=== PATIENT | male | born 1940 | race Caucasian/White ===

== ENCOUNTER 2018-04-12 02:39 | Inpatient (IN) ==
--- NOTE | 2018-04-12 03:18 | Emergency Department Note ---
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 Qualifiers: Laterality: unspecified laterality Qualified Code(s): C64.9 - Malignant neoplasm of unspecified kidney, except renal pelvis Disposition: Admitted As Inpatient Condition: Fair Referrals: Nela De Souza CNP [Primary Care Provider] - Forms: ED Satisfaction Letter Time of Disposition: 04:51 Nausea/Vomiting/Diarrhea HPI - General Chief complaint: ED Nausea/Vomiting/Diarrhea Stated complaint: n/v, Weakness Time Seen by Provider: 04/12/18 02:43 Source: patient, EMS Mode of arrival: ambulatory Limitations: no limitations, age Nursing Notes Reviewed: Yes Vital Signs Reviewed: Yes - History of Present Illness HPI Narrative: 78-year-old male presented to the emergency department with nausea and vomiting. Patient does have history of renal cell carcinoma he has a kidney removed. He does take chemotherapy 2 weeks on 2 weeks off this been doing this for about 8 years. He never is nauseous when he takes it. He says it is a pill he does not go in for chemotherapy treatment. Yesterday patient had 2 episodes of emesis that was green non-bloody though. said since then he has really felt well he has not had a fever. This morning he got up said that he needed go to the bathroom when he sat down and said he was not feeling well need delay on the ground he then laid on the ground then got up and vomited. After that why said he needed to come to the emergency department. On his way patient said he actually has no complaints at this time does not feel nauseous or like using a vomited at this time. Says he feels way they are that when he first arrived. He had no diarrhea. He has had no fevers. Does not complain of any abdominal pain or any chest pain. Patient otherwise has no complaints including no headaches, blurry vision, neck pain, back pain, fever, chills, nausea, vomiting, chest pain, shortness of breath, abdominal pain, change in balance, pain with urination, pain or tingling or down the arms or legs or any generalized weakness. - Related Data Home Medications Medication Instructions Recorded Confirmed Levothyroxine Sodium [Synthroid] 125 mcg PO DAILY 12/08/14 02/15/18 Metoprolol XL (24 HR) Succ [Toprol 50 mg PO DAILY 12/08/14 02/15/18 XL] Niacin [Niaspan] 500 mg PO DAILY 12/08/14 02/15/18 RX: Aspirin 81 mg PO DAILY 12/08/14 02/15/18 Tamsulosin [Flomax] 0.4 mg PO DAILY 12/08/14 02/15/18 Previous Rx's Medication Instructions Recorded RX: Sunitinib Malate [Sutent] 50 mg PO AD #28 capsule 11/26/17 Allergies Allergy/AdvReac Type Severity Reaction Status Date / Time No Known Allergies Allergy Verified 02/15/18 15:56 All systems ED: reviewed and negative except as stated. Review of Systems: As Per [facility] Past Medical History - Past Medical History Attestation: Yes The following information was validated with the patient. Source: patient Medical history: Reports: cancer, hypertension, other Surgical history: Reports: other Psychiatric history: Reports: no psych history - Social History Smoking Status: Former smoker Smokeless Tobacco Status: No Alcohol use: Reports: none Drug use: Reports: none Physical Exam - General Limitations: age General appearance: alert, in no apparent distress - Head Head exam: atraumatic, normocephalic, normal inspection - Eye Eye exam: Present: normal appearance, PERRL, EOMI - ENT ENT exam: normal exam, normal oropharynx, mucous membranes moist - Neck Neck exam: Present: normal inspection, full ROM, trachea midline - Chest Chest inspection: Present: normal inspection, symmetric chest wall rise - Respiratory Respiratory exam: Present: normal lung sounds bilaterally - Cardiovascular Cardiovascular exam: Present: regular rate, normal rhythm, normal heart sounds - Abdominal Exam Abdominal exam: Present: soft, Non-Tender, normal bowel sounds. Absent: tenderness, distention, guarding, rebound, rigidity - Extremities Exam Extremities exam: Present: normal inspection, full ROM. Absent: tenderness, pedal edema - Expanded Lower Extremity Exam Neurovascular/Tendon exam: Present: normal capillary refill. Absent: pulse deficit, motor deficit, sensory deficit, tendon deficit - Back Exam Back exam: Present: normal inspection, full ROM. Absent: tenderness, CVA tenderness (R), CVA tenderness (L) - Neurological Exam Neurological exam: Present: alert, oriented X3 - Skin Skin exam: Present: warm, dry, intact, normal color Course Course Narrative: We will get basic labs including CBC, BMP, troponin as well as urinalysis and magnesium. We will give patient 1 L IV fluids and monitoring. Patient did not have any abdominal pains no further imaging is needed at this time. He is not feeling nauseous at this time. Disposition is pending results Vital Signs Temperature 97.7 F 04/12/18 02:43 Pulse Rate 114 04/12/18 02:43 Respiratory Rate 20 04/12/18 02:43 Blood Pressure 118/98 04/12/18 02:43 O2 Sat by Pulse Oximetry 100 04/12/18 02:43 Temperature 97.7 F 04/12/18 02:43 Pulse Rate 115 04/12/18 04:59 Respiratory Rate 24 04/12/18 04:59 Blood Pressure 113/87 04/12/18 04:59 O2 Sat by Pulse Oximetry 99 04/12/18 04:59 Oxygen Delivery Oxygen Delivery Room Air Nausea/Vomiting/Diarrhea - MDM Narrative Medical decision making narrative: 78-year-old male presented to the emergency department recently nausea vomiting has had a nausea or vomiting since he has been here. Patient's labs came back with many abnormalities including elevated potassium decreased bicarbonate w orsening creatinine and be when also elevated troponin. Patient is declining any chest pain at this time. We did attempt to get a straight catheter urine there was no urine to be made so we think patient is most likely dehydration. We will give patient 2 L of IV fluids these are currently running at this time. We will repeat a BMP after the fluids are given. Patient did not have any acute EKG changes with the elevated troponin of 6.8. At this time I think the potassium and bicarbonate will autoregulate once patient gets IV fluids is most likely secondary to dehydration. Patient is having no symptoms at this time. Troponin most likely secondary to demand ischemia due to the hypovolemia. I decided that the patient does need to be admitted due to his alleged slight abnormalities as well as only having one kidney and this acute kidney injury that he is having. I spoke with the hospitalist Dr. Lebron who agreed to admit the patient to their service. They are not requesting that we start Kayexalate as well as calcium gluconate at this time and agreed with our plan of IV fluids and rechecking a BMP. Patient is still stable at this time still having no complaints. Patient is going to be admitted to the hospitalist service. - Medical Records Medical records reviewed: Yes I reviewed the patient's medical records. - Lab Data Lab results reviewed: Yes I reviewed the patient's lab results. Result diagrams: 04/12/18 02:46 04/12/18 02:46 Lab Results 04/12/18 04/12/18 04/12/18 Range/Units 02:46 02:46 03:28 WBC 6.8 (4.3-11.1) K/mcL RBC 4.27 (4.19-5.50) M/mcL Hgb 14.4 (12.9-16.9) g/dL Hct 45.3 (37.5-50.1) % MCV 106.1 H (83.0-100.0) fL MCH 33.7 H (28.0-33.3) pg MCHC 31.8 (31.6-35.5) g/dL RDW 15.3 H (11.5-14.5) % Plt Count 141 (140-400) K/mcL MPV 9.9 (9.4-12.4) fL Immature Gran % 0.4 (0-4) % Seg Neutrophils % 87.3 % Lymphocytes % 7.5 % Monocytes % 4.7 % Eosinophils % 0.0 % Basophils % 0.1 % Neutrophils # 5.9 (1.6-8.9) K/mcL Lymphocytes # 0.5 L (0.6-4.6) K/mcL Monocytes # 0.3 (0.0-1.3) K/mcL Eosinophils # 0.0 (0.0-0.6) K/mcL Basophils # 0.0 (0.0-0.2) K/mcL Sodium 134 L (136-145) mEq/L Potassium 6.8 H* (3.5-5.1) mEq/L Chloride 105 (98-107) mEq/L Carbon Dioxide 10 L* (23-29) mEq/L BUN 66 H (8-23) mg/dL Creatinine 3.67 H (0.70-1.30) mg/dL Est GFR ( Amer) 19 L (> 60) Est GFR (Non-Af Amer) 16 L (> 60) BUN/Creatinine Ratio 18 (6-26) Glucose 125 H (70-105) mg/dL Calculated Osmolality 299 (280-300) Lactic Acid 3.7 H (0.5-2.2) mmol/L Calcium 9.7 (8.6-10.3) mg/dL Magnesium 1.9 (1.6-2.6) mg/dL Total Bilirubin 1.2 H (0.3-1.0) mg/dL AST 28 (13-39) Units/L ALT 19 (7-52) Units/L Alkaline Phosphatase 105 H (34-104) Units/L Troponin I 0.06 H* (< 0.04) ng/mL Serum Total Protein 7.4 (6.4-8.9) g/dL Albumin 4.2 (3.5-5.7) g/dL Globulin 3.2 (2.4-3.5) g/dL Albumin/Globulin Ratio 1.3 (1.1-2.2) Lipase 28 (11-82) Units/L - EKG Data EKG attestation: Yes I reviewed and interpreted this EKG. EKG results narrative: EKG done at 0 258 review myself and the attending shows sinus tachycardia at a rate of 116, MO 176, QRS 92, QTC 432. No acute ST changes no acute T-wave changes no other signs of ischemia. No hypertrophy, heart strain, heart block. No WPW/Brugada/HOCM. EKG is unchanged when compared with old one done 10/02/11. Critical Care Time Critical Care Time: Yes Total Critical Care Time: 35 Attestation: Acute hyperkalmia w/ acidosis; fluid resucitation required; vitals stable on admission Attestation Statement - Attestation Attestation: DR Mansfield note: Pt seen in conjunction w/ Resident Dr Sai Cote; I spent face to face time w/ the pt and agree w/ the pts treatment and disposition; Please see his charting for complete documentation; Blood work reviewed; hyperkalemia noted; meds given; accepted by Alyson Melgoza for admission improved @ 4:30 a.m; n/v for approx 24 hrs; NO n/v on admission; 2 L NS given; no ekg changes noted at the time of admission;
[2018-04-12 03:56] LABS: Basophils % 0.1 %; Hematocrit 45.3 % (37.5-50.1); Hemoglobin 14.4 g/dL (12.9-16.9); Immature Granulocytes % 0.4 % (0-4); Lymphocytes # 0.5 K/mcL (0.6-4.6); Lymphocytes % 7.5 %; Mean Corpuscular HGB Conc 31.8 g/dL (31.6-35.5); Mean Corpuscular Hemoglobin 33.7 pg (28.0-33.3); Mean Corpuscular Volume 106.1 fL (83.0-100.0); Mean Platelet Volume 9.9 fL (9.4-12.4); Monocytes # 0.3 K/mcL (0.0-1.3); Monocytes % 4.7 %; Neutrophils # 5.9 K/mcL (1.6-8.9); Platelet Count 141 K/mcL (140-400); Red Blood Count 4.27 M/mcL (4.19-5.50); Red Cell Distribution Width 15.3 % (11.5-14.5); Segmented Neutrophils % 87.3 %
[2018-04-12 04:27] LABS: Albumin 4.2 g/dL (3.5-5.7); Albumin/Globulin Ratio 1.3 (1.1-2.2); Bilirubin,Total 1.2 mg/dL (0.3-1.0); Calcium 9.7 mg/dL (8.6-10.3); Globulin 3.2 g/dL (2.4-3.5); Magnesium 1.9 mg/dL (1.6-2.6); Potassium 6.8 mEq/L (3.5-5.1); Total Protein 7.4 g/dL (6.4-8.9); Troponin I 0.06 ng/mL (< 0.04)
[2018-04-12] MEDS ORDERED: 0.9 % Sodium Chloride 1,000 ML IVC ONE (04:28)
[2018-04-12] MEDS ORDERED: 0.9 % Sodium Chloride 1,000 ML IV ONE (04:45)
[2018-04-12] MEDS ORDERED: Naloxone 0.4 MG/ML INJ IVP PRN (05:47)
[2018-04-12] MEDS ORDERED: 0.9 % Sodium Chloride 1,000 ML IVC SCH (06:00)
--- NOTE | 2018-04-12 06:29 | Internal Med History&Physical ---
<Adrian Amezquita Sai - Last Filed: 04/12/18 07:17> Date of Encounter: 04/12/18 Internal Medicine - H&P: HPI History of present illness: Mr. Hernandez is a 78 year old male Internal Medicine - H&P: Meds Aspirin 81 mg PO DAILY 12/08/14 [History] Levothyroxine Sodium [Synthroid] 125 mcg PO DAILY 12/08/14 [History] Metoprolol XL (24 HR) Succ [Toprol XL] 50 mg PO DAILY 12/08/14 [History] Niacin [Niaspan] 500 mg PO DAILY 12/08/14 [History] Tamsulosin [Flomax] 0.4 mg PO DAILY 12/08/14 [History] Sunitinib Malate [Sutent] 50 mg PO AD #28 capsule 11/26/17 [Rx] Allergy/AdvReac Type Severity Reaction Status Date / Time No Known Allergies Allergy Verified 02/15/18 15:56 All Systems PM: A 10-system review of systems was performed and is negative for pertinent findings except as documented above in the HPI. - Constitutional Vitals: Temp Pulse Resp BP Pulse Ox 97.7 F 115 24 113/87 99 04/12/18 02:43 04/12/18 04:59 04/12/18 04:59 04/12/18 04:59 04/12/18 04:59 Internal Med - H&P Results - Labs CBC & Chem 7: 04/12/18 02:46 04/12/18 02:46 Labs: Short CBC 04/12/18 Range/Units 02:46 WBC 6.8 (4.3-11.1) K/mcL Hgb 14.4 (12.9-16.9) g/dL Hct 45.3 (37.5-50.1) % Plt Count 141 (140-400) K/mcL Neutrophils # 5.9 (1.6-8.9) K/mcL BMP 04/12/18 02:46 Sodium 134 L Potassium 6.8 H* Chloride 105 Carbon Dioxide 10 L* BUN 66 H Creatinine 3.67 H Glucose 125 H Calcium 9.7 Cardiac Enzymes 04/12/18 Range/Units 02:46 Troponin I 0.06 H* (< 0.04) ng/mL Liver Function 04/12/18 Range/Units 02:46 Total Bilirubin 1.2 H (0.3-1.0) mg/dL AST 28 (13-39) Units/L ALT 19 (7-52) Units/L Alkaline Phosphatase 105 H (34-104) Units/L Albumin 4.2 (3.5-5.7) g/dL - Time Spent With Patient Total time spent is greater than 50% in coordination of care (as documented) at patient's floor/unit and/or counseling patient: - Attending Attestation Patient seen and examined. Case was discussed and reviewed with the resident. In short, Patient is an 78-year-old gentleman with a past medical history of hypertension, hypothyroidism and metastatic renal cell carcinoma status post nephrectomy in 2009 currently on chemotherapy presented to the emergency department with nausea and vomiting. Patient is been on his current regimen since 2010 without any issues. Patient's labs came back with many abnormalities including elevated potassium of 6.8, decreased bicarbonate, JAREN and elevated troponin. Patient is otherwise asymptomatic and not reporting any chest pain. He was given 2 L of IV fluids and Kayexalate. EKG showed no new changes when compared to previous EKG. Patient has a previous history of chronic hyperkalemia suspected due to his chemotherapy. He will actually derangements likely secondary to decreased by mouth in the setting of nausea and vomiting, single kidney, resulting in acute kidney injury. Likely to respond to IV fluid hydration. We will repeat a BMP after the fluids are given. Will obtain nephrology consult. <Antony Wheeler - Last Filed: 04/14/18 08:04> Date of Encounter: 04/14/18 Time of Encounter: 06:22 Internal Medicine - H&P: HPI Chief complaint: N/V Admitted From: Home Plans for Post Hospital Care: Home History of present illness: Mr. Hernandez is a 78 year old male with past medical history of renal cell carcinoma with left nephrectomy in 2009 presented to the ED this morning complaining of nausea and vomiting. He states this started yesterday morning with no clear inciting event. He does state that he took his chemotherapy pill 2 days ago, which he normally takes every 2 weeks for the past 11 years, but it has never made him nauseous previously. Pt does state he has not been drinking as much water as he normally does at home, and as a consequence has not been urinating as much. Denies any fever, chills, chest pain, shortness of breath, cough, abdominal pain, dysuria, hematuria, or change in bowel movements. Workup in the ED revealed stable vital signs with some mild tachycardia in the 110s. Labs revealed a significant hyperkalemia at 6.8, and an JAREN with increased Cr at 3.67. Pt's normal Cr is approximately 1.5. Lactic acid and troponin were also elevated at 3.7 and 0.06 respectively. Pt seen and examined at bedside in the ED. He is pleasantly alert and has no complaints at this time. States he is no longer nauseous with his last episode of emesis at approximately 01:00 this morning. Continues to deny chest pain, shortness of breath, and other aforementioned symptoms. He has been unable to urinate since arrival at the ED, stating he did urinate prior to coming here. Past Med Surg Social Fam HX - Past Medical History Medical history: cancer, hypertension, other Psychiatric history: no psych history - Past Surgical History Surgical History: other - Social History Smoking Status: Former smoker Smokeless Tobacco Status: No Alcohol use: none Drug use: none All Systems PM: A 10-system review of systems was performed and is negative for pertinent findings except as documented above in the HPI. - Constitutional Constitutional: no chills, no fever(s), no night sweats, no weakness - EENT Eyes: no blurry vision, no change in vision, no photophobia Ears: no decreased hearing, no tinnitus Nose, mouth and throat: no nasal congestion, no sinus pressure, no sore throat - Cardiovascular Cardiovascular ROS IM: no chest pain, no diaphoresis, no dyspnea, no lightheadedness, no palpitations - Respiratory Respiratory: no cough, no dyspnea, no wheezing, no chest congestion, no excessive phlegm production - Gastrointestinal Gastrointestinal: nausea, vomiting, no change in bowel habits, no hematemesis, no hematochezia, no melena - Genitourinary Genitourinary ROS male: difficulty urinating, no dysuria, no flank pain, no hematuria - Musculoskeletal Musculoskeletal ROS IM: no arthralgias, no myalgias, no numbness, no tingling - Integumentary Integumentary IM: no new lesions, no unusual bruising, no jaundice - Neurological Neurological ROS: no confusion, no frequent falls, no headache(s), no numbness, no tingling, no weakness - Hematologic/Lymphatic Hematologic/Lymphatic: no easy bleeding, no easy bruising - Constitutional Vitals: Temp Pulse Resp BP Pulse Ox 97.7 F 115 24 113/87 99 04/12/18 02:43 04/12/18 04:59 04/12/18 04:59 04/12/18 04:59 04/12/18 04:59 General appearance: Present: cooperative, A&O X 3, pleasant, no acute distress, answers questions appropriately Exam: General: well nourished elderly male in no acute distress Head: normocephalic and atraumatic Eyes: PERRL, EOMI, sclera anicteric, conjunctiva pink Neck: supple, trachea midline Lungs: CTA bilaterally, non-labored breathing. no wheezes, rales, or rhonchi Heart: RRR +s1 +s2 no murmurs, clicks, or rubs GI: abdomen soft, non-tender, non-distended. normoactive bowel sounds Extremities: warm, peripheral pulses palpable and symmetrical. no edema, cyanosis, or calf tenderness Neuro: A&Ox3. no focal deficits. no speech difficulty or abnormality Skin: warm, dry, intact Internal Med - H&P Results - Labs CBC & Chem 7: 04/13/18 06:19 04/13/18 06:19 Labs: Short CBC 04/12/18 Range/Units 02:46 WBC 6.8 (4.3-11.1) K/mcL Hgb 14.4 (12.9-16.9) g/dL Hct 45.3 (37.5-50.1) % Plt Count 141 (140-400) K/mcL Neutrophils # 5.9 (1.6-8.9) K/mcL BMP 04/12/18 02:46 Sodium 134 L Potassium 6.8 H* Chloride 105 Carbon Dioxide 10 L* BUN 66 H Creatinine 3.67 H Glucose 125 H Calcium 9.7 Cardiac Enzymes 04/12/18 Range/Units 02:46 Troponin I 0.06 H* (< 0.04) ng/mL Liver Function 04/12/18 Range/Units 02:46 Total Bilirubin 1.2 H (0.3-1.0) mg/dL AST 28 (13-39) Units/L ALT 19 (7-52) Units/L Alkaline Phosphatase 105 H (34-104) Units/L Albumin 4.2 (3.5-5.7) g/dL - Assessment and plan (1) Acute kidney injury Status: Acute Assessment and plan: Hx of renal cell carcinoma with solitary kidney Review of records shows an elevated Cr around 1.5 and chronic hyperkalemia Likely due to dehydration with nausea and vomiting IV fluids given in ED along with kayexalate, will repeat BMP once fluids are finished Nephro consult (2) Dehydration Status: Acute Assessment and plan: plan as above (3) Hyperkalemia Status: Acute Assessment and plan: plan as above (4) H/O unilateral nephrectomy Status: Chronic Assessment and plan: known hx of left nephrectomy for renal cell carcinoma - Time Spent With Patient Total time spent is greater than 50% in coordination of care (as documented) at patient's floor/unit and/or counseling patient:
[2018-04-12 08:07] LABS: Bilirubin,Urine Moderate (Negative); Blood,Urine Large (Negative); Clarity,Urine Cloudy (Clear); Color,Urine Dark Yellow (Yellow); Glucose,Urine (UA) Normal (Normal); Ketones,Urine Trace mg/dL (Negative); Leukocyte Esterase,Urine Trace (Negative); Nitrite,Urine Negative (Negative); PH,Urine 5.5 pH Units (5.0-8.0); Protein,Urine 30 mg/dL (Neg-Trace); Specific Gravity,Urine 1.012 (1.010-1.025); Urobilinogen,Urine Normal (Normal)
[2018-04-12 08:10] LABS: Bacteria,Urine None Seen per hpf (None-Few); RBC,Urine TNTC per hpf (0-3); Squamous Epithelial Cell,Urine Many per lpf (None-Few); WBC,Urine 15-30 per hpf (0-3)
[2018-04-12 08:29] LABS: Granular Casts,Urine Few per lpf (None Seen); Hyaline Casts,Urine Few per lpf (None-Few)
[2018-04-12 08:51] LABS: Albumin 3.7 g/dL (3.5-5.7); Albumin/Globulin Ratio 1.3 (1.1-2.2); Bilirubin,Total 1.1 mg/dL (0.3-1.0); Calcium 9.1 mg/dL (8.6-10.3); Globulin 2.8 g/dL (2.4-3.5); Magnesium 1.7 mg/dL (1.6-2.6); Phosphorous 4.7 mg/dL (2.7-4.5); Potassium 5.6 mEq/L (3.5-5.1); Total Protein 6.5 g/dL (6.4-8.9)
[2018-04-12 09:02] LABS: Troponin I 0.09 ng/mL (< 0.04)
[2018-04-12] MEDS ORDERED: Sodium Bicarbonate 75 MEQ in 0.45 % Sodium Chloride 1,000 ML IVC SCH (11:15)
--- NOTE | 2018-04-12 12:23 | Event Note ---
Date of Encounter: 04/12/18 Time of Encounter: 12:23 Pt seen after midnight. No acute changes. at bedside states he has CT chest/abdomen/pelvis ordered for 10 am in the morning, . Will check CT while inpt due to Acute Kidney injury and to evaluate for mets. Will check post void bladder scan and renal US. Will check urine culture if not already sent. Rechecking potassium at 1500 following IVF hydration, if still elevated, will consider Kayexalate. Nephrology consulted to see.
--- NOTE | 2018-04-12 14:21 | Nephrology Consult Note ---
Addendum entered and electronically signed by Lam Cote MD 04/12/18 21:59: I examined this patient and my medical decision-making was reviewed with the Resident Physician. I agree with the documented findings, disposition and treatment plan as described except to the extent set forth below. Patient without new complaint. Monitor renal function. No need for dialysis at this time. 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 - So far has received 2 L of normal saline with improvement of kidney function to BUN/creatinine of 63/3.26 - Potassium also noted to be elevated at 6.8 on presentation, improved to 5.6 after administration of 30 mg Kayexalate by ER Plan - Suspect that this is most likely due to dehydration however given that his kidney status is tenuous due to solitary kidney, will obtain additional workup - We will repeat urinalysis with addition of urine sodium, urine creatinine, creatinine kinase, urine eosinophils - Patient denies any BPH, however if no improvement or if laboratory workup should demonstrate a postobstructive pattern, we will consider renal ultrasound - Please continue to avoid nephrotoxins and renally dose medications - We will also change fluids from normal saline to 0.45 normal saline with 75 of bicarbonate for metabolic acidosis as below x1 bag - We will recheck potassium this afternoon - Urine culture ordered and pending (2) Metabolic acidosis Current Visit: Yes Status: Acute - Bicarbonate upon presentation of 10 which is improved to 14 and repeat labs - Etiology is possibly lactic acidosis versus acute kidney injury - Continuing with supportive care - We will switch fluids to 0.45 normal saline with 75 of bicarbonate x 1 bag - Continue to monitor (3) Lactic acidosis Current Visit: Yes Status: Acute Lactic acid of 3.7 on presentation, improved to 2.7 on repeat - Likely secondary to hypoperfusion from poor oral intake - Did meet severe sepsis on presentation with tachypnea and tachycardia, however this may be more related to dehydration and acidosis - We will continue monitor and hydrate as above (4) Dehydration Current Visit: Yes Status: Acute As above for acute kidney injury (5) Hyperkalemia Current Visit: Yes Status: Chronic Likely secondary to acute kidney injury as above 6.8 on presentation which is improved to 5.6 after Kayexalate We will continue to monitor Also received calcium gluconate in emergency room (6) Kidney cancer, primary, 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 Kearns presented to ED on 04/12/18 for concerns for dehydration. Nephrology was consulted on 04/12 for concerns for JAREN as well as electrolytes abnormalities in the setting of status post nephrectomy due to renal cell carcinoma in 2010. His past medical history of hypertension, renal cell carcinoma status post nephrectomy and current chemotherapy, CKD stage 3. He does not follow with [facility]. He does follow with oncology and takes Sutent for his c hemotherapy with most recent dose on Thursday. He states that starting on Thursday morning, he again to experience gradual onset nausea, cramping epigastric abdominal pain, and poor oral oral intake. He states that he did have 4 episodes of emesis that evening which prompted him to present to the emergency room. He states the vomiting contained green bilious fluid without any evidence of blood. He denies any symptoms of fevers, chills, chest pain, shortness of breath. He states his bowel movements have been normal and he normally has approximately 2 per day. He does admit to poor oral intake secondary to the nausea including both food and liquid. He has been compliant with medications with no changes in medications recently. On presentation to the emergency room, vital signs were significant for a heart rate of 114, respiratory rate 20. Laboratory results significant for an MCV of 106 with within normal limits H/H, chemistries were significant for a sodium of 134, potassium 6.8, bicarbonate 10, BUNs/creatinine of 66/3.67, lactic acid 3.7, total bilirubin 1.2, alkaline phosphatase 105, troponin 0.06. Urinalysis was also obtained which showed protein 30, trace ketones, large blood, moderate bilirubin, trace leukocyte esterase, too numerous to count RBCs, 15-30 WBCs, granular casts and many epithelial cells. He was given 30 mg of Kayexalate as well as calcium gluconate. Today during interview, patient states that he is feeling better from presentation. He has had no further episodes of emesis and his nausea is improved. He continues to deny any symptoms of fevers, chills and his abdominal pain has improved as well. He has had a couple episodes of loose bowel m ovements but this is secondary to Kayexalate. He reports good urine output. Past Med Surg Social Fam HX - Past Medical History Medical history: cancer, hypertension, other Psychiatric history: no psych history - Past Surgical History Surgical History: other - Social History Smoking Status: Former smoker Smokeless Tobacco Status: No Alcohol use: none Drug use: none Medications and Allergies Aspirin 81 mg PO DAILY 12/08/14 [History] Levothyroxine Sodium [Synthroid] 125 mcg PO DAILY 12/08/14 [History] Metoprolol XL (24 HR) Succ [Toprol XL] 50 mg PO DAILY 12/08/14 [History] Niacin [Niaspan] 500 mg PO DAILY 12/08/14 [History] Tamsulosin [Flomax] 0.4 mg PO DAILY 12/08/14 [History] Sunitinib Malate [Sutent] 50 mg PO AD #28 capsule 11/26/17 [Rx] Allergy/AdvReac Type Severity Reaction Status Date / Time No Known Allergies Allergy Verified 02/15/18 15:56 Review of Systems All Systems review (narrative): - Constitutional: Admits to generalized fatigue, dehydration. Denies fevers, chills, weight loss - CVS: Denies chest pain, palpitations, PETTY, orthopnea, edema - Pulm: Denies SOB, cough, sputum, hematemesis - GI: Admits to abdominal pain, nausea, vomiting, poor oral intake. Denies anorexia, diarrhea, constipation, melena - : Denies dysuria, increased frequency, urgency - Skin: Denies rashes, ulcers, color changes, - Neuro: Denies WARD, paresthesias, focal deficits, ataxia, Exam - Vital Signs Vital signs: Initial Vital Signs Temp Pulse Resp BP Pulse Ox 97.7 F 114 20 118/98 100 04/12/18 02:43 04/12/18 02:43 04/12/18 02:43 04/12/18 02:43 04/12/18 02:43 Vital Signs - Last 8 Hours Temp Pulse Resp BP Pulse Ox 04/12/18 10:55 98.6 F 102 19 126/86 96 04/12/18 08:33 97.7 F 98 18 116/78 98 04/12/18 07:54 18 153/95 Intake and Output 04/11/18 04/12/18 04/12/18 23:59 07:59 15:59 Intake Total 2230 / 2230 Balance 2230 / 2230 Intake: IV Fluids 0 / 2110 0.9 % Sodium Chloride 1,000 ML 1000 / 1000 @ As Directed IV CONT ONE Rx#: [id number] 0.9 % Sodium Chloride 1,000 ML 1000 / 1000 @ 999 mls/hr IVC .Q1H1M ONE Rx# :[id number] Calcium Gluconate 1,000 MG In 0 110 / 110 .9 % Sodium Chloride 100 ML @ 220 mls/hr IVPB ONCE ONE Rx#: [id number] Oral 120 / 120 Other: Meal Lunch Percent of Meal Consumed 85% Weight 55.565 kg 58.513 kg Patient Weight 04/12/18 23:59 Weight 58.513 kg - General Appearance Exam: Gen.: Vitals noted. No acute distress. AAOx3, sitting up at bedside HEENT: PERRL/EOMI, oropharynx clear, Normocephalic, atraumatic, MMM Cardiac: RRR, no murmur, +S1/S2 Pulmonary: CTA bilaterally, no wheezes, rales or rhonchi, equal chest expansion Abdomen: soft, mildly tender to palpation of the epigastric region, BS noted, no guarding, no rebound. MSK: ROM not assessed, no joint swelling noted Extremities: no BLE edema, nontender calf, no cyanosis or clubbing Neuro: A&Ox3, moves all extremities, no focal deficits Psych: Appropriate mood and behavior Results - Lab Results 04/12/18 02:46 04/12/18 08:12 Most recent lab results Calcium 9.1 mg/dL (8.6-10.3) 04/12/18 08:12 Phosphorus 4.7 mg/dL (2.7-4.5) H 04/12/18 08:12 Magnesium 1.7 mg/dL (1.6-2.6) 04/12/18 08:12 Consult Discharge Plan - Plan Referrals: Nela De Souza, SOLUTION ADVISOR [Primary Care Provider] - 04/21/18 9:00 am (Please follow up as schedule...)
[2018-04-12 15:44] LABS: Potassium 5.1 mEq/L (3.5-5.1); Troponin I 0.09 ng/mL (< 0.04)
--- NOTE | 2018-04-12 16:41 | Electrocardiograph Report ---
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
[2018-04-12] MEDS ORDERED: Niacin (24 HR) 500 MG TAB.ER.24H PO SCH (21:00)
[2018-04-12 22:38] LABS: Sodium, Urine 64.6 mEq/L
[2018-04-13 06:44] LABS: Basophils % 0.2 %; Eosinophils % 2.4 %; Red Cell Distribution Width 15.1 % (11.5-14.5)
[2018-04-13 06:46] LABS: Eosinophils # 0.1 K/mcL (0.0-0.6); Hematocrit 31.5 % (37.5-50.1); Immature Granulocytes % 0.2 % (0-4); Immature Platelets 3.1 % (1.1-6.1); Lymphocytes # 0.9 K/mcL (0.6-4.6); Lymphocytes % 21.7 %; Mean Corpuscular HGB Conc 33.3 g/dL (31.6-35.5); Mean Corpuscular Hemoglobin 34.1 pg (28.0-33.3); Mean Corpuscular Volume 102.3 fL (83.0-100.0); Mean Platelet Volume 9.9 fL (9.4-12.4); Monocytes # 0.3 K/mcL (0.0-1.3); Monocytes % 6.2 %; Neutrophils # 2.9 K/mcL (1.6-8.9); Red Blood Count 3.08 M/mcL (4.19-5.50); Segmented Neutrophils % 69.3 %
[2018-04-13 07:10] LABS: Calcium 8.5 mg/dL (8.6-10.3); Potassium 4.2 mEq/L (3.5-5.1)
[2018-04-13 07:19] LABS: Hemoglobin 10.5 g/dL (12.9-16.9); Platelet Count 66 K/mcL (140-400)
[2018-04-13 07:20] LABS: Platelet Estimate Slight Decrease (Normal)
--- NOTE | 2018-04-13 07:48 | Internal Med Progress Note ---
Hospitalist Progress Note - Encounter Date of Encounter: 04/13/18 Time of Encounter: 07:40 - Exam Vitals: Temp Pulse Resp BP Pulse Ox 97.6 F 83 16 136/78 98 04/13/18 07:01 04/13/18 07:01 04/13/18 07:01 04/13/18 07:01 04/13/18 07:01 - Assessment and Plan (1) Acute kidney injury Current Visit: Yes Status: Acute (2) Dehydration Current Visit: Yes Status: Acute (3) Hyperkalemia Current Visit: Yes Status: Chronic - Time Spent with Patient Total time spent is greater than 50% in coordination of care (as documented) at patient's floor/unit and/or counseling patient: Internal Medicine: Result - Labs CBC & Chem 7: 04/13/18 06:19 04/13/18 06:19 Labs: Short CBC 04/13/18 Range/Units 06:19 WBC 4.2 L (4.3-11.1) K/mcL Hgb 10.5 L D (12.9-16.9) g/dL Hct 31.5 L (37.5-50.1) % Plt Count 66 L D (140-400) K/mcL Neutrophils # 2.9 (1.6-8.9) K/mcL BMP 04/12/18 04/12/18 04/13/18 08:12 15:07 06:19 Sodium 138 136 Potassium 5.6 H 5.1 4.2 Chloride 111 H 108 H Carbon Dioxide 14 L 22 L BUN 63 H 43 H Creatinine 3.26 H 1.63 H Glucose 114 H 91 Calcium 9.1 8.5 L Cardiac Enzymes 04/12/18 04/12/18 Range/Units 08:12 15:07 Troponin I 0.09 H* 0.09 H* (< 0.04) ng/mL Liver Function 04/12/18 Range/Units 08:12 Total Bilirubin 1.1 H (0.3-1.0) mg/dL AST 27 (13-39) Units/L ALT 18 (7-52) Units/L Alkaline Phosphatase 86 (34-104) Units/L Albumin 3.7 (3.5-5.7) g/dL Urine 04/12/18 Range/Units 07:20 Urine Color Dark Yellow (Yellow) Urine Clarity Cloudy A (Clear) Urine pH 5.5 (5.0-8.0) pH Units Ur Specific [place] 1.012 (1.010-1.025) Urine Protein 30 H (Neg-Trace) mg/dL Urine Glucose (UA) Normal (Normal) mg/dL - Impressions Impressions Abdomen/Pelvis CT 04/12/18 12:15 IMPRESSION: No substantial change in tiny pulmonary nodules, most consistent with benign parenchymal lymph nodes. No new or enlarging pulmonary nodule. Slightly decreased size of right adrenal nodule. Stable postsurgical changes of left nephrectomy and adrenalectomy. Unchanged ectatic abdominal aorta. 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 D/ / Jayme Stevens / Jayme Stevens Interpreting Provider: Jayme Stevens Chest CT 04/12/18 14:13 IMPRESSION: No substantial change in tiny pulmonary nodules, most consistent with benign parenchymal lymph nodes. No new or enlarging pulmonary nodule. Slightly decreased size of right adrenal nodule. Stable postsurgical changes of left nephrectomy and adrenalectomy. Unchanged ectatic abdominal aorta. 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 D/ / Jayme Stevens / Jayme Stevens Interpreting Provider: Jayme Stevens Retroperitoneum Ultrasound 04/12/18 20:00 IMPRESSION: Normal sonographic appearance of the right kidney. Status post left nephrectomy. Prostate gland enlargement. Significant postvoid residual as above. D/ / Iesha Live Cha, MD / Iesha Live Cha, MD Interpreting Provider: Iesha Live Cha, MD Consult Discharge Plan - Plan Referrals: Nela De Souza CNP [Primary Care Provider] - 04/21/18 9:00 am (Please follow up as schedule...)
--- NOTE | 2018-04-13 08:53 | Discharge Summary ---
Orders not resulted at time of discharge: Pending orders 04/12/18 11:15 Urinalysis reflex Microscopic [URIN] Routine 04/12/18 12:12 Culture,Urine [RM] Stat 04/14/18 04:00 BMP [Basic Metabolic Panel] AM 0400 CBC [Complete Blood Count] [HEME] AM 0400 04/15/18 04:00 BMP [Basic Metabolic Panel] AM 0400 CBC [Complete Blood Count] [HEME] AM 0400 Date of Encounter: 04/13/18 Time of Encounter: 13:00 - Discharge Diagnosis (1) Acute kidney injury Priority: Primary Status: Acute Assessment and Plan: 1 year old male with past medical history of renal cell carcinoma with left nephrectomy in 2009 presented to the ED this morning complaining of nausea and vomiting. He states this started yesterday morning with no clear inciting event. He does state that he took his chemotherapy pill 2 days ago, which he normally takes every 2 weeks for the past 11 years, but it has never made him nauseous previously. Patient was assessed with dehydration and acute kidney injury likely secondary to nausea and vomiting possibly secondary to chemotherapy. He was managed supportively with IV fluids and made a sooner than anticipated recovery. He was also noted to be hyperkalemic which was corrected with kayexalate. He was discharged in a stable condition (2) Dehydration Priority: Primary Status: Acute (3) Hyperkalemia Priority: Primary Status: Chronic Hospital course: Mr. Hernandez is a 78 year old male - Time Spent with Patient Total time spent providing and/or coordinating discharge services: - Discharge Medications Home Medications: Aspirin 81 mg PO DAILY 12/08/14 [History] Levothyroxine Sodium [Synthroid] 125 mcg PO DAILY 12/08/14 [History] Metoprolol XL (24 HR) Succ [Toprol XL] 50 mg PO DAILY 12/08/14 [History] Niacin [Niaspan] 500 mg PO DAILY 12/08/14 [History] Tamsulosin [Flomax] 0.4 mg PO DAILY 12/08/14 [History] Sunitinib Malate [Sutent] 50 mg PO AD #28 capsule 11/26/17 [Rx] Allergies/Adverse Reactions: Allergy/AdvReac Type Severity Reaction Status Date / Time No Known Allergies Allergy Verified 02/15/18 15:56 Date of admission: 04/12/18 07:43 Primary care physician: Nela De Souza CNP Consults: 04/12/18 05:48 Consult to Nephrology [CONS] Stat Consulting Provider: Kidney Macy/DALE/LAUREEN/JASMINE Reason for Consult: Acute kidney injury with electrolyte derangements in the setting of renal cell carcinoma status post nephrectomy in 2009 on chemotherapy Call Completed: No 04/12/18 09:58 Consult to Nutrition [CONS] Routine Comment: Consulting Provider: NUTRITION Reason for Dietary Consult: MST Score - Constitutional Vitals: Temp Pulse Resp BP Pulse Ox 97.6 F 83 16 136/78 98 04/13/18 07:01 04/13/18 07:01 04/13/18 07:01 04/13/18 07:01 04/13/18 07:01 Exam: Gen - Awake, alert, oriented x 3, no acute distress HEENT - NCAT, PERRLA, EOMI, hearing grossly intact, oropharynx benign CV - RRR, normal S1 and S2, no M/R/G, no BLE edema Resp - Normal WOB, CTAB, no W/R/R GI - Soft, NT/ND, no masses, normal bowel sounds, Skin - Warm, dry, no rashes/lesions/ulcers Psych - Normal mood and affect, no depression or anxiety - Patient Status Disposition: Home, Self-Care Condition: Fair - Discharge Instructions Follow Up With: Nela De Souza CNP [Primary Care Provider] - 04/21/18 9:00 am (Please follow up as schedule...)
[2018-04-13] MEDS ORDERED: Aspirin 81 MG TAB.CHEW PO SCH (09:00)
[2018-04-13] MEDS ORDERED: NIACIN 500 MG PO SCH (09:00)
[2018-04-13] MEDS ORDERED: Metoprolol XL (24 HR) Succ 50 MG TAB.ER.24H PO SCH (09:00)
[2018-04-13] MEDS ORDERED: Aspirin Enteric Coated 81 MG Tablet PO SCH (09:00)
[2018-04-13 10:01] LABS: Bilirubin,Urine Negative (Negative); Blood,Urine Large (Negative); Color,Urine Yellow (Yellow); Glucose,Urine (UA) Normal (Normal); Ketones,Urine Negative (Negative); Leukocyte Esterase,Urine Small (Negative); Nitrite,Urine Negative (Negative); PH,Urine 5.5 pH Units (5.0-8.0); Protein,Urine Negative (Neg-Trace); Specific Gravity,Urine 1.009 (1.010-1.025); Urobilinogen,Urine Normal (Normal)
[2018-04-13 10:03] LABS: Bacteria,Urine None Seen per hpf (None-Few); Hyaline Casts,Urine None Seen per lpf (None-Few); RBC,Urine 15-30 per hpf (0-3); Squamous Epithelial Cell,Urine Moderate per lpf (None-Few); WBC,Urine 15-30 per hpf (0-3)
[2018-04-13 10:07] LABS: Clarity,Urine Clear (Clear)
--- NOTE | 2018-04-13 10:45 | Nephrology Progress Note ---
Addendum entered and electronically signed by Lam Cote MD 04/13/18 22:16: I examined this patient and my medical decision-making was reviewed with the Resident Physician. I agree with the documented findings, disposition and treatment plan as described except to the extent set forth below. 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 - Potassium also noted to be elevated at 6.8 on presentation, improved to 5.6 after administration of 30 mg Kayexalate by ER. Resolved today at 4.2 Plan - Suspect that this is most likely due to dehydration given how he has improved with fluid administration and this is most consistent with his history of present illness - Workup so far shows that this may be multifactorial as he has a known BPH history as his states today and FENa is consistent with intrinsic renal disease. - Please continue to avoid nephrotoxins and renally dose medications - Potassium and metabolic acidosis have resolved - Urine culture ordered and pending (2) Metabolic acidosis Current Visit: Yes Status: Acute - Bicarbonate upon presentation of 10 which is resolved to 22 this morning - Etiology is possibly lactic acidosis versus acute kidney injury - Continuing with supportive care - Fluids at been discontinued - Continue to monitor (3) Lactic acidosis Current Visit: Yes Status: Acute Lactic acid of 3.7 on presentation, improved to 2.7 on repeat - Likely secondary to hypoperfusion from poor oral intake - Did meet severe sepsis on presentation with tachypnea and tachycardia, however this may be more related to dehydration and acidosis - We will continue monitor and hydrate as above (4) Dehydration Current Visit: Yes Status: Acute As above for acute kidney injury (5) Hyperkalemia Current Visit: Yes Status: Chronic Resolved. Most recent potassium of 4.2. 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 Overall he states that he is doing very well with no complaints at this time. His abdominal pain has resolved and he has been tolerating meals and liquids without complaints. He continues to deny any symptoms of fevers, chills, nausea, vomiting, changes in bowel movements. No acute events overnight Objective - Vital Signs Vital signs: Vital Signs Temp Pulse Resp BP Pulse Ox 04/13/18 07:01 97.6 F 83 16 136/78 98 04/13/18 03:34 98 F 92 17 106/68 97 04/12/18 23:54 98.4 F 85 18 125/77 100 04/12/18 19:15 98.1 F 92 18 122/81 97 04/12/18 15:54 97.8 F 88 18 131/85 98 04/12/18 10:55 98.6 F 102 19 126/86 96 Intake and Output 04/12/18 04/13/18 04/13/18 23:59 07:59 15:59 Intake Total 200 / 200 Output Total 590 / 590 300 / 300 Balance -390 / -390 -300 / -300 Intake: IV Fluids 200 / 200 0.9 % Sodium Chloride 1,000 ML 200 / 200 @ 75 mls/hr IVC .[id number] [facility] Rx #:[id number] Output: Urine 590 / 590 300 / 300 Other: Stool Size Small Stool Consistency liquid # Bowel Movements 1 Weight 59 kg - General Appearance Exam: Gen.: Vitals noted. No acute distress. AAOx3, sitting up at bedside HEENT: PERRL/EOMI, oropharynx clear, Normocephalic, atraumatic, MMM Cardiac: RRR, no murmur, +S1/S2 Pulmonary: CTA bilaterally, no wheezes, rales or rhonchi, equal chest expansion Abdomen: soft, nontender to palpation, BS noted, no guarding, no rebound. MSK: ROM not assessed, no joint swelling noted Extremities: no BLE edema, nontender calf, no cyanosis or clubbing Neuro: A&Ox3, moves all extremities, no focal deficits Psych: Appropriate mood and behavior - Lab 04/13/18 06:19 04/13/18 06:19 Most recent lab results Calcium 8.5 mg/dL (8.6-10.3) L 04/13/18 06:19 Phosphorus 4.7 mg/dL (2.7-4.5) H 04/12/18 08:12 Magnesium 1.7 mg/dL (1.6-2.6) 04/12/18 08:12 Urine Creatinine 81 mg/dL 04/12/18 22:03 Urine Sodium 64.6 mEq/L 04/12/18 22:03 Consult Discharge Plan - Plan Referrals: Nela De Souza, MANDREL MAKER [Primary Care Provider] - 04/21/18 9:00 am (Please follow up as schedule...)
[2018-04-13 11:09] VITALS: BP 119/75
== END 2018-04-13 13:10 | disposition home or self-care (01) | DRG 683 ==
LOC: EMEROOARM 02:39 → 2ANU 07:43
PROVIDERS: ADMIT Family Medicine; ATTEND Family Medicine